=== PATIENT | female | born 1980 ===

== ENCOUNTER → 2020-05-06 | Outpatient (CLI) | payer OTHER | END | disposition home or self-care (01) | LOC: MRI 06:43 | PROVIDERS: ATTEND General Practice | DX: M25.562 Pain in left knee (principal) | CPT/HCPCS: 73721 ==

== ENCOUNTER → 2020-07-28 | Emergency (ER) | payer OTHER ==
[~2020-07-28] VITALS: Ht 177.8 cm; Wt 76.2 kg
== END | disposition home or self-care (01) ==
LOC: ER 11:02 → EDSEX 11:02 → ER 11:39
DX: S60.852A Superficial foreign body of left wrist, initial encounter (principal); W45.8XXA Other foreign body or object entering through skin, initial encounter; Y93.89 Activity, other specified; Y92.89 Other specified places as the place of occurrence of the external cause; Y99.8 Other external cause status

== ENCOUNTER 2023-07-02 15:43 | Emergency (ER) | payer OTHER ==
[~2023-07-02] VITALS: Ht 177.8 cm; Wt 77.1 kg
[2023-07-02] MEDS ORDERED: CLOBETASOL EMOL15 GM TOP (17:41)
[2023-07-02] MEDS ORDERED: XYZAL5 MG PO (17:41)
== END 2023-07-02 17:48 | disposition home or self-care (01) ==
LOC: ER 15:43 → EMR PED 15:43 → ER 17:08
DX: L25.9 Unspecified contact dermatitis, unspecified cause (principal); Z88.6 Allergy status to analgesic agent